=== PATIENT | male | born 1940 | race Caucasian/White ===

== ENCOUNTER → 2018-06-11 | Outpatient (CLI) | payer MEDICARE, BC ==
[~2018-06-11] MED LIST: ASCO500T8 PO; CHRO1000 PO; HYDR-3240 PO; LACT1CAP37 PO; MAGN400T7 PO; METH500C3 PO; PHOS1POW PO; TURM1POW PO; UBID50TA3 PO; VITA1CAP PO; VITA400T6 PO
[2018-06-11 15:34] LABS: MICROSCOPIC NOT IND
[2018-06-11 15:37] LABS: BASOPHILS # (AUTO) 0.03 x10^3/uL (0-0.1); BASOPHILS % (AUTO) 0 % (0-1); EOSINOPHILS # (AUTO) 0.11 x10^3/uL (0-0.4); EOSINOPHILS % (AUTO) 1 % (1-7); LYMPHOCYTES # (AUTO) 1.74 x10^3/uL (1-3.4); LYMPHOCYTES % (AUTO) 19 % (22-44); MD NO; MEAN CORPUSCULAR HEMOGLOBIN 31.7 pg (27.5-34.5); MEAN CORPUSCULAR HGB CONC 34.1 g/dL (33.2-36.2); MEAN CORPUSCULAR VOLUME 93.1 fL (81-97); MEAN PLATELET VOLUME 10.2 fL (7.4-10.4); MONOCYTES # (AUTO) 0.56 x10^3/uL (0.2-0.8); MONOCYTES % (AUTO) 6 % (2-9); NEUTROPHILS # (AUTO) 6.76 x10^3/uL (1.8-6.8); NEUTROPHILS % (AUTO) 74 % (42-75); PLATELET COUNT 253 x10^3/uL (130-400); RED BLOOD COUNT 4.99 x10^6/uL (4.38-5.82); RED CELL DISTRIBUTION WIDTH 12.6 % (9.4-14.8)
[2018-06-11 15:38] LABS: CULTURE INDICATED? NO
[2018-06-11 15:40] LABS: ANION GAP 6 mmol/L (5-15); CALCIUM 9.3 mg/dL (8.5-10.1); CHLORIDE 107 mmol/L (98-107); CREATININE 1.19 mg/dL (0.7-1.3)
== END | disposition home or self-care (01) ==
LOC: STAR 14:10
PROVIDERS: ATTEND Orthopaedic Surgery
DX: Z01.818 Encounter for other preprocedural examination (principal); M17.12 Unilateral primary osteoarthritis, left knee
CPT/HCPCS: 36415; 80048; 81003; 85025; 87081; 87147; 93005

== ENCOUNTER 2018-06-16 07:02 | Inpatient (IN) | payer MEDICARE, BC ==
[~2018-06-16] VITALS: Ht 175.3 cm; Wt 88.0 kg
[~2018-06-16 07:02] MED LIST changes: -HYDR-3240 PO
[2018-06-16] MEDS ORDERED: LACTATED RINGERS 1,000 ML IV SCH (07:51)
[2018-06-16 07:58] VITALS: BP 128/76
[2018-06-16] MEDS ORDERED: MEPERIDINE/PF 25MG/0.5ML IVPush PRN (08:30)
[2018-06-16] MEDS ORDERED: OXYcodone IR 5MG TABLET PO ONE (08:30)
[2018-06-16] MEDS ORDERED: HYDROmorphone 1 MG/ML, 1ML IV PRN ×2 (08:30→11:30)
[2018-06-16] MEDS ORDERED: ACETAMINOPHEN 500 MG TABLET PO ONE (08:30)
[2018-06-16] MEDS ORDERED: GABAPENTIN 300 MG CAPSULE PO ONE (08:30)
[2018-06-16] MEDS ORDERED: OXYcodone 5 MG/5 ML ORAL.SOL UDC PO PRN (08:30)
[2018-06-16] MEDS ORDERED: ONDANSETRON 2MG/ML, 2ML IV PRN ×2 (08:30→11:30)
[2018-06-16] MEDS ORDERED: LABETALOL 5MG/ML, 20ML IV PRN (08:30)
[2018-06-16] MEDS ORDERED: KETOROLAC 60 MG/2 ML ONE (08:41)
[2018-06-16] MEDS ORDERED: ROPIvacaine/PF 0.2%, 20 ML ONE (08:42)
[2018-06-16] MEDS ORDERED: EPINEPHRINE 1 MG/ML, 1ML ONE (08:42)
[2018-06-16] MEDS ORDERED: TRANEXAMIC ACID 100 MG/ML, 10ML ONE (08:42)
[2018-06-16] MEDS ORDERED: SODIUM CHLORIDE 0.9% 100 ML ONE (08:42)
[2018-06-16] MEDS ORDERED: MIDAZOLAM 1 MG/ML, 2ML ONE (09:01)
[2018-06-16] MEDS ORDERED: FENTANYL PF 250 MCG/5ML ONE ×2 (09:02→10:46)
[2018-06-16] MEDS ORDERED: ONDANSETRON 2MG/ML, 2ML ONE (10:30)
[2018-06-16] MEDS ORDERED: CEFAZOLIN 1,000 MG ONE ×2 (10:30)
[2018-06-16] MEDS ORDERED: ROCURONIUM 10MG/ML,5ML ONE (10:30)
[2018-06-16] MEDS ORDERED: PROPOFOL 10 MG/ML, 20ML ONE (10:30)
[2018-06-16] MEDS ORDERED: DEXAMETHASONE 4 MG/ML, 1ML ONE (10:30)
[2018-06-16] MEDS ORDERED: FENTANYL PF 100 MCG/2ML ONE ×2 (11:26→11:49)
[2018-06-16] MEDS ORDERED: OXYcodone 5 MG/5 ML ORAL.SOL UDC ONE (11:27)
[2018-06-16] MEDS ORDERED: SENNA/DOCUSATE TABLET PO PRN (11:30)
[2018-06-16] MEDS ORDERED: DIPHENHYDRAMINE 25 MG CAPSULE PO PRN (11:30)
[2018-06-16] MEDS ORDERED: ZOLPIDEM 5MG TABLET PO PRN (11:30)
[2018-06-16] MEDS ORDERED: ACETAMINOPHEN 650 MG/20.3 ML UDC PO PRN (11:30)
[2018-06-16] MEDS ORDERED: DIAZEPAM 5 MG TABLET PO PRN (11:30)
[2018-06-16] MEDS ORDERED: ALUMINUM/MAG/SIMETHICONE 30 ML UDC PO PRN (11:30)
[2018-06-16] MEDS ORDERED: MAGNESIUM HYDROXIDE 8%, 30ML UDC PO PRN (11:30)
[2018-06-16] MEDS ORDERED: PROMETHAZINE 12.5 MG SUPP PR PRN (11:30)
[2018-06-16] MEDS ORDERED: PROMETHAZINE 25 MG/ML, 1ML IM PRN (11:30)
[2018-06-16] MEDS: FENTANYL PF 100 MCG/2ML IV PRN ×5 (11:30→12:15)
[2018-06-16] MEDS ORDERED: OXYcodone IR 5MG TABLET PO PRN (11:30)
[2018-06-16] MEDS ORDERED: HYDROcodone/APAP 10/325 MG TABLET PO PRN (11:30)
[2018-06-16] MEDS ORDERED: ONDANSETRON 4 MG TABLET PO PRN (11:30)
[2018-06-16] MEDS ORDERED: BISACODYL 10 MG SUPP PR PRN (11:30)
[2018-06-16] MEDS ORDERED: TRANEXAMIC ACID 1,000 MG in SODIUM CHLORIDE 0.9% 100 ML IVPB ONE (11:50)
[2018-06-16] MEDS: TAMSULOSIN 0.4 MG CAP.ER.24H PO SCH (14:08)
[2018-06-16 14:13] VITALS: BP 129/71
[2018-06-16] MEDS: D5%-0.45% NACL 1,000 ML IV SCH ×2 (14:16→23:00)
[2018-06-16] MEDS: ASPIRIN 81 MG TABLET EC PO SCH (18:33)
[2018-06-16] MEDS: CEFAZOLIN PMX 2GM/50ML 50 ML IVPB SCH (18:33)
[2018-06-16] MEDS: HYDROcodone/APAP 10/325 MG TABLET PO SCH ×2 (18:34→22:15)
[2018-06-16 19:41] VITALS: BP 108/60
[2018-06-16] MEDS: DOCUSATE 100 MG CAPSULE PO SCH (21:22)
[2018-06-17 01:45] VITALS: BP 101/57
[2018-06-17] MEDS: HYDROcodone/APAP 10/325 MG TABLET PO SCH ×3 (02:15→10:07)
[2018-06-17] MEDS: CEFAZOLIN PMX 2GM/50ML 50 ML IVPB SCH (02:32)
[2018-06-17 04:00] VITALS: BP 106/58
[2018-06-17] MEDS ORDERED: DEXAMETHASONE 4 MG/ML, 1ML IVPush SCH (06:00)
[2018-06-17 06:30] VITALS: BP 98/54
[2018-06-17] MEDS: ASPIRIN 81 MG TABLET EC PO SCH (06:37)
[2018-06-17] MEDS: D5%-0.45% NACL 1,000 ML IV SCH (07:00)
[2018-06-17] MEDS: TAMSULOSIN 0.4 MG CAP.ER.24H PO SCH (08:19)
[2018-06-17] MEDS: DOCUSATE 100 MG CAPSULE PO SCH (08:19)
[2018-06-17] MEDS ORDERED: MULTIVITAMINS/MINERALS TABLET PO SCH (09:00)
[2018-06-17 09:52] VITALS: BP 105/63
[2018-06-17] MEDS ORDERED: HYDR-3240 PO (10:45)
[2018-06-17] MEDS ORDERED: KETOROLAC 30 MG/1 ML IV SCH (11:30)
== END 2018-06-17 11:40 | disposition home or self-care (01) | DRG 470 ==
LOC: OUT 07:02 → ORIP 11:26 → 4NOR 12:23 → DCLOUNGE 06-17 11:21
PROVIDERS: ADMIT Orthopaedic Surgery; ATTEND Orthopaedic Surgery
PROC: 0SRD0J9 Replacement of Left Knee Joint with Synthetic Substitute, Cemented, Open Approach (ICD-10-PCS; principal; 2018-06-16 09:45)
DX: M17.12 Unilateral primary osteoarthritis, left knee (principal); R63.4 Abnormal weight loss; Z68.28 Body mass index [BMI] 28.0-28.9, adult
CPT/HCPCS: 36415; 85014; 85018; C1713; J0171; J0690; J1100; J1885; J2250; J2405; J2704; J2795; J3010; C1776; J7120